=== PATIENT | female | born 1955 | race Caucasian/White ===

== ENCOUNTER → 2017-05-11 | Outpatient (CLI) | payer MEDICAID | END | disposition home or self-care (01) | LOC: OIH 16:44 | PROVIDERS: ATTEND Internal Medicine | DX: I10 Essential (primary) hypertension (principal); M17.11 Unilateral primary osteoarthritis, right knee | CPT/HCPCS: 71046; 73560 ==

== ENCOUNTER → 2019-05-08 | Outpatient (CLI) | payer MEDICAID | END | disposition home or self-care (01) | LOC: OIH 09:41 | PROVIDERS: ATTEND Internal Medicine | DX: M17.0 Bilateral primary osteoarthritis of knee (principal); J44.9 Chronic obstructive pulmonary disease, unspecified | CPT/HCPCS: 71046; 73560 ==

== ENCOUNTER 2021-02-24 09:40 | Emergency (ER) | payer MEDICARE ==
[~2021-02-24] VITALS: Ht 182.9 cm; Wt 108.9 kg
[2021-02-24] MEDS ORDERED: ACETAMINOPHEN 325 MG TAB PO ONE (10:00)
[2021-02-24 10:18] VITALS: BP 145/79
[2021-02-24] MEDS ORDERED: NEOM30OI18 TP (10:25)
[2021-02-24] MEDS ORDERED: NEOMY SULF/BACITRA/POLYMYXIN B 1 EACH PACKET TP ONE (10:31)
== END 2021-02-24 10:44 | disposition home or self-care (01) ==
LOC: EDH 09:40
DX: S60.455A Superficial foreign body of left ring finger, initial encounter (principal); I10 Essential (primary) hypertension; J44.9 Chronic obstructive pulmonary disease, unspecified; F31.9 Bipolar disorder, unspecified; Z88.0 Allergy status to penicillin; Z88.5 Allergy status to narcotic agent; X58.XXXA Exposure to other specified factors, initial encounter; Y93.89 Activity, other specified; Y92.89 Other specified places as the place of occurrence of the external cause; Y99.8 Other external cause status

== ENCOUNTER → 2023-11-09 | Outpatient (CLI) | payer MEDICARE ==
[~2023-11-09] MED LIST: NEOM30OI18 TP
== END | disposition home or self-care (01) ==
LOC: RAH 10:51
PROVIDERS: ATTEND Internal Medicine
DX: J98.11 Atelectasis (principal); J84.9 Interstitial pulmonary disease, unspecified; J44.0 Chronic obstructive pulmonary disease with (acute) lower respiratory infection; M47.815 Spondylosis without myelopathy or radiculopathy, thoracolumbar region
CPT/HCPCS: 71046

== ENCOUNTER 2023-11-18 20:11 | Inpatient (IN) | payer MEDICARE ==
[~2023-11-18] VITALS: Ht 167.6 cm; Wt 93.9 kg
[2023-11-18 20:46] LABS: BASOPHILS # (AUTO) 0.04 K/uL (0.00-0.20); BASOPHILS % (AUTO) 0.2 % (0.0-5.0); EOSINOPHILS # (AUTO) 0.27 K/uL (0.00-0.70); EOSINOPHILS % (AUTO) 1.5 % (0.0-8.0); HEMATOCRIT 43.9 % (36-48); LYMPHOCYTES # (AUTO) 3.2 K/uL (1.0-4.8); LYMPHOCYTES % (AUTO) 17.4 % (21.0-51.0); MEAN CORPUSCULAR HGB CONC 32.3 g/dL (32.0-36.0); MEAN CORPUSCULAR VOLUME 89.8 fL (79-99); MONOCYTES # (AUTO) 1.3 K/uL (0.1-1.0); MONOCYTES % (AUTO) 7.1 % (3.0-13.0); NEUTROPHILS # (AUTO) 13.4 K/uL (1.8-7.7); NEUTROPHILS % (AUTO) 73.3 % (40.0-77.0); PLATELET COUNT (AUTO) 229 K/uL (130-400); RED BLOOD CELL COUNT(AUTO) 4.89 MIL/uL (4.00-5.50); RED CELL DISTRIBUTION WIDTH 15.3 % (11.0-15.5); WHITE BLOOD COUNT (AUTO) 18.4 K/uL (4.8-10.8)
[2023-11-18 20:52] LABS: APPEARANCE,URINE CLOUDY (CLEAR); BILIRUBIN,URINE NEGATIVE (NEGATIVE); COLOR,URINE LIGHT-YELLOW (YELLOW); GLUCOSE, URINE (UA) NEGATIVE (NEGATIVE); KETONES,URINE NEGATIVE (NEGATIVE); LEUKOCYTE ESTERASE ,URINE NEGATIVE Leu/uL (NEGATIVE); NITRATE,URINE NEGATIVE (NEGATIVE); OCCULT BLOOD,URINE LARGE (NEGATIVE); PROTEIN,URINE 50 mg/dL (NEGATIVE); UROBILINOGEN,URINE 0.2 mg/dL (0.2-1.0)
[2023-11-18 20:56] LABS: ADD UA MICROSCOPIC YES
[2023-11-18 20:57] LABS: MUCUS,URINE RARE LPF (None Seen); RBC,URINE 51-100 /HPF (0-1); SQUAMOUS EPITHELIAL CELL,UR FEW /HPF (0-2)
[2023-11-18 21:01] LABS: CREATININE 1.9 mg/dL (0.5-1.0); POTASSIUM 3.2 mmol/L (3.5-5.1)
[2023-11-18 21:10] LABS: ALBUMIN 3.1 g/dL (3.5-5.0); BILIRUBIN,TOTAL 1.3 mg/dL (0.2-1.0); TOTAL PROTEIN, SERUM 6.4 g/dL (6.0-8.3)
[2023-11-18] MEDS: 0.9%NACL 1000ML 1,000 ML IV ONE (21:40)
[2023-11-18] MEDS: LEVOFLOXACIN 750 MG/D5W 150ML BAG IV ONE (22:52)
[2023-11-18] MEDS ORDERED: UMEC1DIS IH (23:30)
[2023-11-18] MEDS ORDERED: BENZ2TAB71 PO (23:30)
[2023-11-18] MEDS ORDERED: ALBU18HF7 IH (23:30)
[2023-11-18] MEDS ORDERED: ARIP5TAB51 PO (23:30)
[2023-11-18] MEDS ORDERED: VANCOMYCIN PROTOCOL PER PHARMACY IV SCH (23:30)
[2023-11-18] MEDS ORDERED: BUDE0.5A3 IH (23:30)
[2023-11-18] MEDS ORDERED: LATA2.5D14 OP (23:45)
[2023-11-18] MEDS ORDERED: ZOLP5TAB8 PO (23:45)
[2023-11-18] MEDS ORDERED: LITH300T4 PO (23:45)
[2023-11-18] MEDS ORDERED: ROSU40TA70 PO (23:45)
[2023-11-18] MEDS ORDERED: LACT10SO5 PO (23:45)
[2023-11-18] MEDS ORDERED: CLOT15CR5 TP (23:45)
[2023-11-18] MEDS ORDERED: FURO20TA4 PO (23:45)
[2023-11-18] MEDS ORDERED: VITA-380 PO (23:45)
[2023-11-18] MEDS ORDERED: APIX2.5T PO (23:45)
[2023-11-18] MEDS ORDERED: OLAN15TA36 PO (23:45)
[2023-11-18] MEDS ORDERED: MELO-108 PO (23:45)
[2023-11-18] MEDS ORDERED: GLUC-208 PO (23:45)
[2023-11-18] MEDS: ceFEPime HCL 1 GM VIAL IVPB SCH (23:47)
[2023-11-18] MEDS: 0.9%NACL 1000ML 1,000 ML IV SCH (23:47)
[2023-11-18] MEDS: VANCOMYCIN KIT 1 GM/250 ML IV.KIT IV ONE (23:48)
[2023-11-19] VITALS (17 sets, daily range): BP systolic 120–150; BP diastolic 52–82; PULSE 63–76; RESP 15–19; O2SAT 2–96
[2023-11-19] MEDS: IpraTROPium/alBUTERol SULFATE 3 ML SOLUTION IH SCH (00:36)
[2023-11-19] MEDS ORDERED: NON-FORMULARY MEDICATION 1 EACH (Meloxicam 15 MG) PO PRN (03:30)
[2023-11-19] MEDS ORDERED: NON-FORMULARY MEDICATION 1 EACH (Lactulose 10 GM) PO PRN (03:30)
[2023-11-19] MEDS: BUDESONIDE 0.5 MG/2 ML INH IH ONE (07:02)
[2023-11-19] MEDS: BUDESONIDE 0.5 MG/2 ML INH IH SCH (07:02)
[2023-11-19] MEDS: Osteo Bi-Flex Caplet PO SCH (09:00)
[2023-11-19] MEDS: CLOTRIMAZOLE/BETAMETHASONE DIP 45 GM CREAM.GM. TP SCH (09:00)
[2023-11-19] MEDS: PHARMACY COMMUNICATION MISC SCH (09:30)
[2023-11-19] MEDS: APIXaban 2.5 MG TABLET PO SCH (10:32)
[2023-11-19] MEDS: ARIPIPrazole 5 MG TABLET PO SCH (10:32)
[2023-11-19] MEDS: BENZTROPINE 0.5MG TAB PO SCH (10:32)
[2023-11-19] MEDS: VANCOMYCIN 750MG VIAL IVPB SCH (10:33)
[2023-11-19] MEDS ORDERED: LACTULOSE 20 GM/30 ML UDCUP PO PRN (11:00)
[2023-11-19] MEDS: ZOLPidem TARTrate 5 MG TAB PO SCH (20:12)
[2023-11-19] MEDS: oLANZapine 5 MG TAB PO SCH (20:21)
[2023-11-19] MEDS: LITHIUM CARBONATE 150 MG CAPSULE PO SCH (20:21)
[2023-11-19] MEDS ORDERED: PHARMACY COMMUNICATION MISC SCH (20:30)
[2023-11-19] MEDS: LATANOPROST 2.5 ML DROPS OP SCH (21:20)
[2023-11-19] MEDS ORDERED: KCL 20 MEQ ERTAB PO PRN (22:30)
[2023-11-19] MEDS ORDERED: MAGNESIUM 2GM PREMIX 50ML 50 ML IV PRN (22:30)
[2023-11-19] MEDS: POTASSIUM CHLORIDE 10% ELIXIR 20 MEQ/15 ML UDCUP PO PRN (22:48)
[2023-11-19] MEDS: POTASSIUM CHLORIDE 20MEQ/100ML 100 ML IV PRN (23:04)
[2023-11-20] VITALS (32 sets, daily range): BP systolic 91–136; BP diastolic 44–69; PULSE 56–85; RESP 18–30; O2SAT 89–96
[2023-11-20 04:48] LABS: HEMATOCRIT 39.2 % (36-48); MEAN CORPUSCULAR HEMOGLOBIN 28.9 pg (27.0-33.0); MEAN CORPUSCULAR HGB CONC 31.6 g/dL (32.0-36.0); MEAN CORPUSCULAR VOLUME 91.4 fL (79-99); RED BLOOD CELL COUNT(AUTO) 4.29 MIL/uL (4.00-5.50); RED CELL DISTRIBUTION WIDTH 15.4 % (11.0-15.5); WHITE BLOOD COUNT (AUTO) 15.7 K/uL (4.8-10.8)
[2023-11-20 06:10] LABS: CREATININE 1.9 mg/dL (0.5-1.0); POTASSIUM 3.6 mmol/L (3.5-5.1)
[2023-11-20] MEDS ORDERED: PROPOFOL 10 MG/ML 20ML VIAL IV ONE (07:24)
[2023-11-20] MEDS ORDERED: LIDOCAINE PF 100MG/5ML (2%) SYRINGE 5ML ONE (07:26)
[2023-11-20] MEDS ORDERED: SIMETHICONE 40 MG/0.6 ML ML ONE (07:32)
[2023-11-20] MEDS: IpraTROPium/alBUTERol SULFATE 3 ML SOLUTION IH ONE (07:56)
[2023-11-20] MEDS: VITAMIN E 450 MG PO SCH (09:00)
[2023-11-20 15:40] LABS: ABG BASE EXCESS -2.7 mmol/L (-2.0-3.0); ABG HCO3 24.7 mmol/L (21.0-28.0); ABG OXYGEN SATURATION 90.8 % (95.0-99.0); ABG PCO2 53 mmHg (32-45); ABG PH 7.288 (7.35-7.450); DEVICE COMMENT CATHY RN RR; PO2, ARTERIAL BG 66.8 mmHg (83.0-108.0); VENT MODE, BG 3L NC (ROOM AIR)
[2023-11-20] MEDS: LATANOPROST 2.5 ML DROPS OP SCH (21:00)
[2023-11-20] MEDS: CLOTRIMAZOLE/BETAMETHASONE DIP 45 GM CREAM.GM. TP SCH (21:00)
[2023-11-20] MEDS: SOLU-MEDROL 40MG VIAL IVP SCH (21:41)
[2023-11-20 23:56] LABS: ABG BASE EXCESS -0.6 mmol/L (-2.0-3.0); ABG HCO3 28.5 mmol/L (21.0-28.0); ABG OXYGEN SATURATION 94.1 % (95.0-99.0); ABG PCO2 68 mmHg (32-45); ABG PH 7.242 (7.35-7.450); CARBON MONOXIDE 0.9; DEVICE COMMENT LR; HHb 5.8; PO2, ARTERIAL BG 74.9 mmHg (83.0-108.0); VENT MODE, BG BIPAP 12-6 (ROOM AIR)
[2023-11-21] VITALS (67 sets, daily range): BP systolic 94–170; BP diastolic 28–105; PULSE 59–86; RESP 21–34; O2SAT 94–98
[2023-11-21] MEDS ORDERED: acetaMINOPHEN 650 MG SUPPOSITORY RC PRN
[2023-11-21] MEDS: KETOROLAC 30MG VIAL (30MG/ML) IVP ONE (00:02)
[2023-11-21] MEDS: IpraTROPium 0.5 MG/2.5 ML INH IH SCH (00:04)
[2023-11-21] MEDS: BUDESONIDE 0.5 MG/2 ML INH IH ONE (00:04)
[2023-11-21 00:22] LABS: BASOPHILS # (AUTO) 0.05 K/uL (0.00-0.20); BASOPHILS % (AUTO) 0.2 % (0.0-5.0); EOSINOPHILS # (AUTO) 0.08 K/uL (0.00-0.70); EOSINOPHILS % (AUTO) 0.4 % (0.0-8.0); HEMATOCRIT 43.4 % (36-48); IMMATURE GRANULOCYTE ABSOLUTE 0.17 K/uL (0-1); LYMPHOCYTES # (AUTO) 1.2 K/uL (1.0-4.8); LYMPHOCYTES % (AUTO) 5.6 % (21.0-51.0); MEAN CORPUSCULAR HEMOGLOBIN 28.5 pg (27.0-33.0); MEAN CORPUSCULAR HGB CONC 30.9 g/dL (32.0-36.0); MEAN CORPUSCULAR VOLUME 92.1 fL (79-99); MONOCYTES # (AUTO) 0.8 K/uL (0.1-1.0); MONOCYTES % (AUTO) 3.8 % (3.0-13.0); NEUTROPHILS # (AUTO) 18.2 K/uL (1.8-7.7); NEUTROPHILS % (AUTO) 89.2 % (40.0-77.0); PLATELET COUNT (AUTO) 197 K/uL (130-400); RED BLOOD CELL COUNT(AUTO) 4.71 MIL/uL (4.00-5.50); RED CELL DISTRIBUTION WIDTH 15.9 % (11.0-15.5); WHITE BLOOD COUNT (AUTO) 20.4 K/uL (4.8-10.8)
[2023-11-21 00:34] LABS: INR 1.02 (0.85-1.15)
[2023-11-21 00:35] LABS: PARTIAL THROMBOPLASTIN TIME 26.8 SEC (26.3-35.5)
[2023-11-21 01:05] LABS: B-TYPE NATRIURETIC PEPTIDE 64 pg/mL (0-100)
[2023-11-21 01:12] LABS: ABG BASE EXCESS -1.5 mmol/L (-2.0-3.0); ABG HCO3 26.7 mmol/L (21.0-28.0); ABG OXYGEN SATURATION 85.9 % (95.0-99.0); ABG PCO2 59 mmHg (32-45); ABG PH 7.272 (7.35-7.450); DEVICE COMMENT LR MAGGY; VENT MODE, BG BIPAP 16-8 (ROOM AIR)
[2023-11-21 03:46] LABS: ABG BASE EXCESS 1.5 mmol/L (-2.0-3.0); ABG OXYGEN SATURATION 99.3 % (95.0-99.0); ABG PCO2 80 mmHg (32-45); ABG PH 7.221 (7.35-7.450); DEVICE COMMENT RR RN; PO2, ARTERIAL BG 240.7 mmHg (83.0-108.0); VENT MODE, BG 18 8 BIPAP (ROOM AIR)
[2023-11-21 05:09] LABS: ABG BASE EXCESS -1.6 mmol/L (-2.0-3.0); ABG HCO3 27.3 mmol/L (21.0-28.0); ABG PCO2 65 mmHg (32-45); ABG PH 7.243 (7.35-7.450); PO2, ARTERIAL BG 128.1 mmHg (83.0-108.0)
[2023-11-21 06:54] LABS: ABG BASE EXCESS -2.3 mmol/L (-2.0-3.0); ABG HCO3 26.8 mmol/L (21.0-28.0); ABG OXYGEN SATURATION 98.3 % (95.0-99.0); ABG PCO2 66 mmHg (32-45); ABG PH 7.229 (7.35-7.450); DEVICE COMMENT POLLY; HHb 1.7; PO2, ARTERIAL BG 121.9 mmHg (83.0-108.0); VENT MODE, BG BIPAP 18 (ROOM AIR)
[2023-11-21 06:56] LABS: BASOPHILS # (AUTO) 0.02 K/uL (0.00-0.20); BASOPHILS % (AUTO) 0.1 % (0.0-5.0); HEMATOCRIT 38.7 % (36-48); LYMPHOCYTES # (AUTO) 0.8 K/uL (1.0-4.8); LYMPHOCYTES % (AUTO) 4.5 % (21.0-51.0); MEAN CORPUSCULAR HEMOGLOBIN 29.6 pg (27.0-33.0); MEAN CORPUSCULAR HGB CONC 31.8 g/dL (32.0-36.0); MEAN CORPUSCULAR VOLUME 93.3 fL (79-99); MONOCYTES # (AUTO) 0.4 K/uL (0.1-1.0); MONOCYTES % (AUTO) 2.5 % (3.0-13.0); NEUTROPHILS # (AUTO) 16.1 K/uL (1.8-7.7); NEUTROPHILS % (AUTO) 92.3 % (40.0-77.0); PLATELET COUNT (AUTO) 168 K/uL (130-400); RED BLOOD CELL COUNT(AUTO) 4.15 MIL/uL (4.00-5.50); RED CELL DISTRIBUTION WIDTH 15.5 % (11.0-15.5); WHITE BLOOD COUNT (AUTO) 17.5 K/uL (4.8-10.8)
[2023-11-21 07:01] LABS: MAGNESIUM 2.1 mg/dL (1.80-2.40); POTASSIUM 4.2 mmol/L (3.5-5.1)
[2023-11-21 10:21] LABS: ABG BASE EXCESS -0.9 mmol/L (-2.0-3.0); ABG PCO2 58 mmHg (32-45); ABG PH 7.286 (7.35-7.450); DEVICE COMMENT RR RN LEO; PO2, ARTERIAL BG 84.4 mmHg (83.0-108.0); VENT MODE, BG NC (ROOM AIR)
[2023-11-21 11:15] LABS: PHOSPHORUS 3.5 mg/dL (2.5-4.9)
[2023-11-21] MEDS: METRONIDAZOLE 500MG/100ML BAG 100 ML IVPB SCH (13:28)
[2023-11-21] MEDS: DEXAMETHASONE SOD PHOSPHATE 4 MG/ML 1ML VIAL IVP SCH (16:55)
[2023-11-21] MEDS: LACTATED RINGERS 1000ML 1,000 ML IV SCH (16:55)
[2023-11-22] MEDS ORDERED: PANTOPRAZOLE 40 MG/VIAL IVP SCH (09:00)
== END 2023-11-21 23:00 | disposition short-term general hospital (02) | DRG 871 ==
LOC: EDH 20:11 → EDHIP 23:05 → 4AH 11-19 00:06 → 2BH 11-21 01:40
PROVIDERS: ADMIT Family Medicine; ATTEND Family Medicine
PROC: 5A09357 Assistance with Respiratory Ventilation, Less than 24 Consecutive Hours, Continuous Positive Airway Pressure (ICD-10-PCS; principal; 2023-11-20)
PROC: 5A09357 Assistance with Respiratory Ventilation, Less than 24 Consecutive Hours, Continuous Positive Airway Pressure (ICD-10-PCS; 2023-11-21)
DX: A41.9 Sepsis, unspecified organism (principal); J96.01 Acute respiratory failure with hypoxia; J18.9 Pneumonia, unspecified organism; J96.02 Acute respiratory failure with hypercapnia; J44.0 Chronic obstructive pulmonary disease with (acute) lower respiratory infection; J98.11 Atelectasis; J44.1 Chronic obstructive pulmonary disease with (acute) exacerbation; I10 Essential (primary) hypertension; R49.0 Dysphonia; K57.10 Diverticulosis of small intestine without perforation or abscess without bleeding; K29.60 Other gastritis without bleeding; J38.7 Other diseases of larynx; F20.9 Schizophrenia, unspecified; D35.00 Benign neoplasm of unspecified adrenal gland; F31.9 Bipolar disorder, unspecified; R41.89 Other symptoms and signs involving cognitive functions and awareness; Z88.0 Allergy status to penicillin; Z79.899 Other long term (current) drug therapy
CPT/HCPCS: 36415; 36600; 44361; 70450; 70490; 71045; 74176; 80048; 80053; 80202; 81001; 82140; 82435; 82803; 82947; 82948; 83605; 83735; 83880; 84100; 84132; 84145; 84295; 84484; 85018; 85025; 85027; 85378; 85610; 85730; 87040; 92610; 93005; 94640; 94660; 94664; 96365; 96375; G0378; J0692; J1100; J1885; J1956; J2001; J2704; J2919; J3370; J3480; J3490; J7030; A4215; A4222; A4223; A4620; A4657